=== PATIENT | female | born 1950 | race Caucasian/White ===

== ENCOUNTER 2017-10-26 02:07 | Inpatient (IN) | payer MEDICARE, OTHER ==
[~2017-10-26] VITALS: Ht 157.5 cm; Wt 64.9 kg
[2017-10-26] MEDS ORDERED: ACETAMINOPHEN 325MG TABLET PO NR (02:56)
[2017-10-26] MEDS ORDERED: MORPHINE SULFATE 2 MG/ML CPJ (NOT FOR IM USE) IV NR (02:56)
[2017-10-26] MEDS ORDERED: ONDANSETRON HCL 4MG/2ML VIAL IV NR (02:56)
[2017-10-26] MEDS ORDERED: SODIUM CHLORIDE 0.9% 1000ML BAG (SEPSIS BOLUS) IV NR (03:00)
[2017-10-26] MEDS ORDERED: CLINDAMYCIN 600 MG in DEXTROSE 5% WATER 50 ML IV NR (03:00)
[2017-10-26 03:18] LABS: HEMATOCRIT. 33.1 % (36.0-48.0); HEMOGLOBIN. 11.7 g/dL (12.0-16.0); MEAN CORPUSCULAR HEMOGLOBIN 36.7 pg (28.0-32.0); MEAN CORPUSCULAR VOLUME 104.4 fL (81.0-99.0); MEAN PLATELET VOLUME 7.6 fl (7.4-10.4); PLATELET 65 x1000/uL (130-400); RED BLOOD CELL COUNT 3.17 mill/uL (4.2-5.4); RED CELL DISTRIBUTION WIDTH 14.5 % (11.6-14.6)
[2017-10-26 03:26] LABS: INR 1.5; PROTHROMBIN TIME 15.3 sec (9.4-11.6)
[2017-10-26 03:33] LABS: CARBON DIOXIDE 25 mEq/L (21-32); CHLORIDE 95 mEq/L (98-107)
[2017-10-26] MEDS ORDERED: SODIUM CHLORIDE 0.9% 1,000 ML IV SCH (05:05)
[2017-10-26] MEDS ORDERED: ACETAMINOPHEN 325MG TABLET PO PRN ×2 (05:15→12:15)
[2017-10-26 05:37] LABS: PLATELET ESTIMATE DECREASED
[2017-10-26 05:44] LABS: CLARITY URINE CLEAR (CLEAR); COLOR URINE DARK YELLOW (YELLOW); KETONES URINE NEGATIVE (NEGATIVE); LEUKOCYTE ESTERASE URINE TRACE (NEGATIVE); NITRITE URINE NEGATIVE (NEGATIVE); OCCULT BLOOD URINE NEGATIVE (NEGATIVE); PROTEIN URINE NEGATIVE (NEGATIVE); SPECIFIC GRAVITY URINE 1.016 (1.005-1.030)
[2017-10-26] MEDS: ONDANSETRON HCL 4MG/2ML VIAL IV PRN ×2 (06:40→16:36)
[2017-10-26] MEDS: HYDROCODONE/ACETAMINOPHEN 5/325MG TABLET PO PRN (06:40)
[2017-10-26 09:00] VITALS: BP 95/48
[2017-10-26 12:00] VITALS: BP 89/49
[2017-10-26] MEDS ORDERED: DEXTROSE 50% WATER 50ML SYRINGE IV PRN (12:00)
[2017-10-26] MEDS ORDERED: CLONIDINE 0.1MG TABLET PO PRN (12:15)
[2017-10-26] MEDS ORDERED: ONDANSETRON HCL 4MG/2ML VIAL IV PRN (12:15)
[2017-10-26] MEDS ORDERED: DOCUSATE SODIUM 100MG CAPSULE PO PRN (12:15)
[2017-10-26] MEDS ORDERED: PIPERACILLIN/TAZ 3.375G PREMIX 50 ML IV SCH (12:15)
[2017-10-26] MEDS ORDERED: ENOXAPARIN 40MG/0.4ML SYR SUBCUT SCH (12:15)
[2017-10-26] MEDS ORDERED: MAGNESIUM/ALUMINUM HYDROXIDE/SIMETHICONE 30ML UDC PO PRN (12:15)
[2017-10-26] MEDS: SODIUM CHLORIDE 0.9% 1,000 ML IV SCH (12:57)
[2017-10-26] MEDS: INSULIN LISPRO 100 UNITS/ML SUBCUT SCH ×3 (12:59→21:18)
[2017-10-26] MEDS ORDERED: VANCOMYCIN 1250MG in DEXTROSE 5% WATER 250ML IV SCH (14:00)
[2017-10-26 16:00] VITALS: BP 96/47
[2017-10-26] MEDS ORDERED: BUME1TAB4 PO (16:02)
[2017-10-26] MEDS ORDERED: SPIR50TA26 PO (16:02)
[2017-10-26] MEDS ORDERED: PSYL660P17 PO (16:02)
[2017-10-26] MEDS ORDERED: PROP20TA7 PO (16:02)
[2017-10-26] MEDS ORDERED: CHOL500051 PO (16:02)
[2017-10-26] MEDS ORDERED: RANI15SY PO (16:02)
[2017-10-26] MEDS ORDERED: METF850T2 PO (16:02)
[2017-10-26] MEDS ORDERED: OMEP20CA10 PO (16:02)
[2017-10-26] MEDS ORDERED: FURO40TA5 PO (16:02)
[2017-10-26] MEDS ORDERED: [UNRECOGNIZED DRUG - CODE] IJ (16:02)
[2017-10-26] MEDS: BLOOD SUGAR DIAGNOSTIC STRIP TEST SCH ×2 (16:40→21:00)
[2017-10-26] MEDS ORDERED: RANITIDINE 15 MG/ML PO SCH (18:30)
[2017-10-26] MEDS: FUROSEMIDE 40MG TABLET PO SCH (19:52)
[2017-10-26 20:00] VITALS: BP 101/51
[2017-10-26] MEDS: FAMOTIDINE 20MG TABLET PO SCH (21:00)
[2017-10-26] MEDS ORDERED: LEVOFLOXACIN 250MG PREMIX 50 ML IV SCH (21:00)
[2017-10-26] MEDS: PROPRANOLOL HCL 20MG TABLET PO SCH (21:00)
[2017-10-26] MEDS: PIPERACILLIN/TAZ 3.375G PREMIX 50 ML IV SCH (22:28)
[2017-10-27] VITALS: BP 123/61
[2017-10-27 04:00] VITALS: BP 122/50
[2017-10-27] MEDS: PIPERACILLIN/TAZ 3.375G PREMIX 50 ML IV SCH ×2 (05:17→13:01)
[2017-10-27] MEDS: SODIUM CHLORIDE 0.9% 1,000 ML IV SCH (05:17)
[2017-10-27 05:46] LABS: BASOPHILS % 0.2 % (0.0-2.0); EOSINOPHILS % 0.2 % (0.0-5.0); HEMATOCRIT. 34.6 % (36.0-48.0); HEMOGLOBIN. 12.3 g/dL (12.0-16.0); LYMPHOCYTES % 8.9 % (20.0-50.0); MEAN CORPUSCULAR HEMOGLOBIN 36.8 pg (28.0-32.0); MEAN CORPUSCULAR VOLUME 103.5 fL (81.0-99.0); MEAN PLATELET VOLUME 7.5 fl (7.4-10.4); MONOCYTES % 8.1 % (2.0-8.0); NEUTROPHILS % 82.6 % (40.0-76.0); PLATELET 85 x1000/uL (130-400); RED BLOOD CELL COUNT 3.34 mill/uL (4.2-5.4); RED CELL DISTRIBUTION WIDTH 14.7 % (11.6-14.6)
[2017-10-27] MEDS: PROPRANOLOL HCL 20MG TABLET PO SCH ×3 (06:43→21:30)
[2017-10-27] MEDS: OMEPRAZOLE 20MG CAPSULE EXTENDED RELEASE PO SCH (06:43)
[2017-10-27] MEDS: FUROSEMIDE 40MG TABLET PO SCH ×2 (06:43→18:12)
[2017-10-27] MEDS: BLOOD SUGAR DIAGNOSTIC STRIP TEST SCH ×4 (06:44→21:31)
[2017-10-27] MEDS: INSULIN LISPRO 100 UNITS/ML SUBCUT SCH ×4 (06:44→21:37)
[2017-10-27] MEDS: FAMOTIDINE 20MG TABLET PO SCH ×2 (06:45→21:31)
[2017-10-27 07:49] LABS: CHLORIDE 97 mEq/L (98-107)
[2017-10-27 07:53] LABS: CARBON DIOXIDE 22 mEq/L (21-32)
[2017-10-27 08:00] VITALS: BP 96/45
[2017-10-27] MEDS: PSYLLIUM SEED PACKET PO SCH ×3 (08:53→18:12)
[2017-10-27] MEDS: METFORMIN HCL 850MG TABLET PO SCH ×2 (08:54→18:12)
[2017-10-27] MEDS: CHOLECALCIFEROL (D3) 1000 UNIT TABLET PO SCH (08:54)
[2017-10-27] MEDS: SPIRONOLACTONE 50MG TABLET PO SCH (08:54)
[2017-10-27] MEDS: BUMETANIDE 1MG TABLET PO SCH (08:55)
[2017-10-27] MEDS ORDERED: PHYTONADIONE 1MG/0.5ML AMP PO SCH (09:00)
[2017-10-27 12:28] VITALS: BP 109/43
[2017-10-27] MEDS: VANCOMYCIN 1 G PREMIX 200 ML IV SCH (12:55)
[2017-10-27 16:06] VITALS: BP 111/41
[2017-10-27 20:00] VITALS: BP 120/56
[2017-10-27] MEDS: LEVOFLOXACIN 500MG PREMIX 100 ML IV SCH (21:39)
[2017-10-28] VITALS: BP 123/60
[2017-10-28] MEDS: PIPERACILLIN/TAZ 3.375G PREMIX 50 ML IV SCH ×4 (00:05→22:10)
[2017-10-28 04:00] VITALS: BP 119/60
[2017-10-28] MEDS: FAMOTIDINE 20MG TABLET PO SCH ×2 (06:16→22:10)
[2017-10-28 06:17] LABS: HEMATOCRIT. 30.5 % (36.0-48.0); HEMOGLOBIN. 10.9 g/dL (12.0-16.0); MEAN CORPUSCULAR HEMOGLOBIN 37.1 pg (28.0-32.0); MEAN CORPUSCULAR VOLUME 103.6 fL (81.0-99.0); MEAN PLATELET VOLUME 7.1 fl (7.4-10.4); PLATELET 75 x1000/uL (130-400); RED BLOOD CELL COUNT 2.94 mill/uL (4.2-5.4)
[2017-10-28] MEDS: FUROSEMIDE 40MG TABLET PO SCH ×2 (06:17→18:16)
[2017-10-28] MEDS: OMEPRAZOLE 20MG CAPSULE EXTENDED RELEASE PO SCH (06:17)
[2017-10-28] MEDS: VANCOMYCIN 1 G PREMIX 200 ML IV SCH (06:17)
[2017-10-28] MEDS: INSULIN LISPRO 100 UNITS/ML SUBCUT SCH ×4 (06:21→20:54)
[2017-10-28] MEDS: BLOOD SUGAR DIAGNOSTIC STRIP TEST SCH ×4 (06:22→20:53)
[2017-10-28] MEDS: PROPRANOLOL HCL 20MG TABLET PO SCH ×3 (06:51→22:00)
[2017-10-28 08:00] VITALS: BP 91/42
[2017-10-28] MEDS: HYDROCODONE/ACETAMINOPHEN 5/325MG TABLET PO PRN (08:51)
[2017-10-28] MEDS: PSYLLIUM SEED PACKET PO SCH ×3 (08:51→18:16)
[2017-10-28] MEDS: BUMETANIDE 1MG TABLET PO SCH (08:51)
[2017-10-28] MEDS: CHOLECALCIFEROL (D3) 1000 UNIT TABLET PO SCH (08:51)
[2017-10-28] MEDS: SPIRONOLACTONE 50MG TABLET PO SCH (08:51)
[2017-10-28] MEDS: METFORMIN HCL 850MG TABLET PO SCH ×2 (08:51→18:16)
[2017-10-28 08:53] LABS: CARBON DIOXIDE 23 mEq/L (21-32); CHLORIDE 98 mEq/L (98-107)
[2017-10-28 12:00] VITALS: BP 99/31
[2017-10-28] MEDS ORDERED: SODIUM CHLORIDE 0.9% 1,000 ML IV SCH (13:00)
[2017-10-28 16:00] VITALS: BP 92/35
[2017-10-28 16:15] LABS: PLATELET ESTIMATE DECREASED
[2017-10-28] MEDS ORDERED: DIATR MEGLU/DIATRIZOATE SOLN 30ML PO NR (17:00)
[2017-10-28 20:00] VITALS: BP 94/49
[2017-10-28] MEDS: LEVOFLOXACIN 500MG PREMIX 100 ML IV SCH (22:10)
[2017-10-28] MEDS ORDERED: IOHEXOL-300 100 ML BOTTLE ONE (22:33)
[2017-10-29] VITALS: BP 105/49
[2017-10-29] MEDS: VANCOMYCIN 1 G PREMIX 200 ML IV SCH (00:38)
[2017-10-29 04:00] VITALS: BP 113/50
[2017-10-29] MEDS: FUROSEMIDE 40MG TABLET PO SCH (06:34)
[2017-10-29] MEDS: PIPERACILLIN/TAZ 3.375G PREMIX 50 ML IV SCH (06:34)
[2017-10-29] MEDS: FAMOTIDINE 20MG TABLET PO SCH (06:34)
[2017-10-29] MEDS: OMEPRAZOLE 20MG CAPSULE EXTENDED RELEASE PO SCH (06:34)
[2017-10-29] MEDS: BLOOD SUGAR DIAGNOSTIC STRIP TEST SCH ×3 (06:35→16:45)
[2017-10-29] MEDS: INSULIN LISPRO 100 UNITS/ML SUBCUT SCH ×3 (06:41→18:33)
[2017-10-29 08:00] VITALS: BP 99/44
[2017-10-29] MEDS: BUMETANIDE 1MG TABLET PO SCH (08:57)
[2017-10-29] MEDS: PSYLLIUM SEED PACKET PO SCH ×2 (08:57→12:42)
[2017-10-29] MEDS: CHOLECALCIFEROL (D3) 1000 UNIT TABLET PO SCH (08:57)
[2017-10-29] MEDS: METFORMIN HCL 850MG TABLET PO SCH (08:58)
[2017-10-29] MEDS: SPIRONOLACTONE 50MG TABLET PO SCH (08:58)
[2017-10-29 12:00] VITALS: BP 99/32
[2017-10-29 16:00] VITALS: BP 97/44
[2017-10-29 17:45] VITALS: BP 97/44
[2017-10-30] MEDS ORDERED: VANCOMYCIN 1 G PREMIX 200 ML IV SCH (04:00)
[2017-10-30 08:00] VITALS: BP 152/60
== END 2017-10-29 18:30 | disposition home or self-care (01) | DRG 871 ==
LOC: ER 02:22 → 5WST 05:07 → EDBEDREQTM 05:22 → EDBEDREQ 05:22 → ENRESERV 07:10
PROVIDERS: ADMIT Internal Medicine Nephrology; ATTEND Internal Medicine Nephrology
DX: A41.9 Sepsis, unspecified organism (principal); E43 Unspecified severe protein-calorie malnutrition; Z76.82 Awaiting organ transplant status; J18.9 Pneumonia, unspecified organism; D68.9 Coagulation defect, unspecified; K66.8 Other specified disorders of peritoneum; E87.1 Hypo-osmolality and hyponatremia; L03.115 Cellulitis of right lower limb; K76.6 Portal hypertension; N39.0 Urinary tract infection, site not specified; L03.116 Cellulitis of left lower limb; E88.09 Other disorders of plasma-protein metabolism, not elsewhere classified; K74.60 Unspecified cirrhosis of liver; E11.9 Type 2 diabetes mellitus without complications; D64.9 Anemia, unspecified; Z68.26 Body mass index [BMI] 26.0-26.9, adult
CPT/HCPCS: 36415; 71010; 73590; 74178; 80048; 80053; 80202; 81001; 82962; 83605; 85025; 85610; 87040; 96365; 96375; 97116; 97162; 97166; 97530; 97535; 99285; C1893; J1815; J1956; J2270; J2405; J2543; J3370; J3490; J7030; J7040; J7060; Q9963; Q9967